=== PATIENT | female | born 1970 | race Two or more races ===

== ENCOUNTER 2022-03-26 07:08 | Day surgery (SDC) | payer OTHER ==
[~2022-03-26] VITALS: Ht 162.6 cm; Wt 67.1 kg
[~2022-03-26 07:08] MED LIST: D3 + K2 DOTS 11 EACH PO; VERELAN PM300 MG PO
== END 2022-03-26 20:55 | disposition home or self-care (01) ==
LOC: CIR.AMB 07:08
PROVIDERS: ATTEND Specialist
DX: Q51.818 Other congenital malformations of uterus (principal); N95.0 Postmenopausal bleeding; Z20.822 Contact with and (suspected) exposure to COVID-19; Z91.041 Radiographic dye allergy status; I10 Essential (primary) hypertension; E78.5 Hyperlipidemia, unspecified; J45.909 Unspecified asthma, uncomplicated